=== PATIENT | female | born 1930 | race Caucasian/White ===

== ENCOUNTER → 2017-02-21 | Outpatient (CLI) | payer OTHER, BC ==
[2017-02-21 10:33] LABS: CREATININE 1.7 mg/dL (0.6-1.0)
== END ==
LOC: FIMAGING 09:48
PROVIDERS: ATTEND Internal Medicine
DX: K59.00 Constipation, unspecified (principal); K80.20 Calculus of gallbladder without cholecystitis without obstruction; I70.0 Atherosclerosis of aorta; E11.9 Type 2 diabetes mellitus without complications
CPT/HCPCS: G0463-PO

== ENCOUNTER → 2017-03-16 | Outpatient (CLI) | payer OTHER, BC | LOC: FIMAGING 13:30 | PROVIDERS: ATTEND Nurse Practitioner | DX: R60.9 Edema, unspecified (principal) ==

== ENCOUNTER → 2017-07-10 | Outpatient (CLI) | payer OTHER, BC | LOC: CIMAGING 10:15 | PROVIDERS: ATTEND Internal Medicine | DX: J44.9 Chronic obstructive pulmonary disease, unspecified (principal) | CPT/HCPCS: 71020-PO ==

== ENCOUNTER 2017-07-28 23:05 | Emergency (ER) | payer OTHER, BC ==
[2017-07-28 23:37] VITALS: TEMP 98.2
[2017-07-28] MEDS ORDERED: NS 1,000 ML IV ONE (23:40)
[2017-07-28 23:45] LABS: % IMMATURE GRANULYOCYTES 0.8 % (0.0-1.1); ABSOLUTE IMMATURE GRANULOCYTES 0.05 10^3/uL (0.00-0.10); ADD DIFF? NO; ADD MORPH? NO; ADD SCAN? NO; ATYPICAL LYMPHOCYTE FLAG 0 (0-99); FRAGMENT RBC FLAG 0 (0-99); HEMATOCRIT 41.9 % (38.0-47.0); HEMOGLOBIN 14.5 g/dL (12.6-16.3); LEFT SHIFT FLG 0 (0-99); LIPEMIA HEMOLYSIS FLAG 90 (0-99); MEAN CELL HEMOGLOBIN 31.5 pg (27.9-34.1); MEAN CELL HEMOGLOBIN CONCENTR. 34.6 g/dL (32.4-36.7); MEAN CELL VOLUME 90.9 fL (81.5-99.8); MEAN PLATELET VOLUME 12.4 fL (8.7-11.7); PLATELET CLUMPS FLAG 0 (0-99); PLATELET COUNT 174 10^3/uL (150-400); RED BLOOD CELL COUNT 4.61 10^6/uL (4.18-5.33); RED CELL DISTRIBUTION WIDTH 13.7 % (11.5-15.2)
[2017-07-28] MEDS ORDERED: INSULIN REGULAR HUMAN 100 UNIT/ML SC ONE (23:47)
[2017-07-28 23:54] LABS: CALCIUM 8.9 mg/dL (8.5-10.4); CREATININE 1.3 mg/dL (0.6-1.0); POTASSIUM 4.7 mEq/L (3.5-5.2)
--- NOTE | 2017-07-29 01:43 | EDPHY ---
H & P Time Seen by Provider: 07/28/17 23:30 HPI/ROS: CHIEF COMPLAINT: blood sugar at home over 500 HISTORY OF PRESENT ILLNESS: this is an 87-year-old female who recently had a series of hypoglycemic spells. She was on twice daily Humalog. She was referred by her PCP to a legal counsel who recently started on her on a new long -acting insulin, Tuejo. Wears her approximate total daily dose of the Humalog was in the neighborhood of 45 units she was started on 25 units of this new medication. She was warned at the time that she would probably run unusually high levels because there was this attempt to try to avoid hypoglycemia. Such is the case. The tonight was her 2nd dose of the Tuejo, 25 units with the plan to continue 25 units daily for 3 days and then up to 30. Tonight when she checked she had a reading over 500. Besides polyuria she does not notice any symptoms whatsoever. She has had no fevers, chills, cough, headache, near syncope, lightheadedness, nausea vomiting diarrhea, chest discomfort, shortness of breath, abdominal pain. REVIEW OF SYSTEMS: Constitutional: No fever, no chills. Eyes: No discharge. ENT: No sore throat. Cardiovascular: No chest pain, no palpitations. Respiratory: No cough, shortness of breath, or wheezing. Gastrointestinal: No nausea vomiting or diarrhea. No abdominal pain. Genitourinary: No hematuria or frequency. Musculoskeletal: No back pain. Skin: No rashes. Neurological: No headache. 10 point ROS otherwise negative Source: Patient Exam Limitations: No limitations - Personal History Tetanus Vaccine Date: 08/02/14 - Medical/Surgical History Hx Asthma: No Hx Chronic Respiratory Disease: No Hx Diabetes: Yes Hx Cardiac Disease: No Hx Renal Disease: No Hx Cirrhosis: No Hx Alcoholism: No Hx HIV/AIDS: No Hx Splenectomy or Spleen Trauma: No Other PMH: med hx-cholesterol,diabetes,thyroid, [place] - wears hearing aids. surg- ortho-(ft,hip,knee),appy,hyst - Family History Significant Family History: No pertinent family hx - Social History Smoking Status: Current every day smoker Alcohol Use: None Drug Use: None - Physical Exam Exam: General Appearance: Alert, no distress. Afebrile. Normal phonation. No respiratory distress. Eyes: Pupils equal and round no pallor or injection. No icterus ENT, Mouth: Mucous membranes slightly dry. Pharynx without erythema or exudate. TM cerumen blocked Neck: No adenopathy. Supple. No JVD. Respiratory: There are no retractions, lungs are clear to auscultation. Chest wall: Nontender to palpation. No crepitus. Cardiovascular: Regular rate and rhythm. Abdomen: Soft and nontender, no masses, bowel sounds normal. Neurological: Ox3. No motor weakness. Gait nl. Skin: Warm and dry, no rashes. Musculoskeletal: No joint swelling. Extremities: Moderate pitting edema to the knees, she states that stable. Homans sign negative. No cords. Psychiatric: Normal affect. Patient is oriented X 3. There is no agitation Constitutional: Initial Vital Signs Temperature (C) 36.8 C 07/28/17 23:34 Heart Rate 87 07/28/17 23:34 Respiratory Rate 16 07/28/17 23:34 Blood Pressure 115/95 H 07/28/17 23:34 O2 Sat (%) 96 07/28/17 23:34 O2 Delivery Mode Room Air Allergies/Adverse Reactions: acetaminophen [From Tylenol] Allergy (Severe, Verified 07/28/17 23:30) Hives morphine Allergy (Severe, Verified 07/28/17 23:30) "Goofy" Sulfa (Sulfonamide Antibiotics) Allergy (Severe, Verified 07/28/17 23:30) Hives Home Medications: Medication Instructions Recorded Aspirin 04/11/15 Atrovastatin 04/11/15 Feosol 04/11/15 Januvia 04/11/15 Levothyroxine 04/11/15 HCTZ (*) 07/28/17 Humalog 07/28/17 Lisinopril 07/28/17 Propranolol HCl 07/28/17 Medical Decision Making ED Course/Re-evaluation: She was given a L of fluid over 2 hours for volume depletion. Given 8 units of Humulin. Observed, repeat BG went down from 533 to 280. There is no clinical change. She was released. I explained to her that indeed I would expect her sugars to be elevated again today and that [facility], July 29 for discussion as to whether she should have an earlier increase in her medication Differential Diagnosis: At this point given the diabetes had a control other considerations would include urinary tract infection, dietary indiscretion, underlying infectious process, or metabolic stress such as acute PR or thyrotoxicosis. However given the medication change her hyperglycemia is anticipated and I do not see any problematic underlying etiology - Data Points Laboratory Results: Laboratory Results 07/28/17 23:25 07/28/17 23:25 07/29/17 07/28/17 07/28/17 01:31 23:25 23:25 WBC 6.40 10^3/uL 10^3/uL (3.80-9.50) RBC 4.61 10^6/uL 10^6/uL (4.18-5.33) Hgb 14.5 g/dL g/dL (12.6-16.3) Hct 41.9 % % (38.0-47.0) MCV 90.9 fL fL (81.5-99.8) MCH 31.5 pg pg (27.9-34.1) MCHC 34.6 g/dL g/dL (32.4-36.7) RDW 13.7 % % (11.5-15.2) Plt Count 174 10^3/uL 10^3/uL (150-400) MPV 12.4 fL H fL (8.7-11.7) Neut % (Auto) 60.1 % % (39.3-74.2) Lymph % (Auto) 23.6 % % (15.0-45.0) [place]y % (Auto) 12.3 % % (4.5-13.0) Eos % (Auto) 2.3 % % (0.6-7.6) Baso % (Auto) 0.9 % % (0.3-1.7) Nucleat RBC Rel Count 0.0 % % (0.0-0.2) Absolute Neuts (auto) 3.84 10^3/uL 10^3/uL (1.70-6.50) Absolute Lymphs (auto) 1.51 10^3/uL 10^3/uL (1.00-3.00) Absolute Monos (auto) 0.79 10^3/uL 10^3/uL (0.30-0.80) Absolute Eos (auto) 0.15 10^3/uL 10^3/uL (0.03-0.40) Absolute Basos (auto) 0.06 10^3/uL 10^3/uL (0.02-0.10) Absolute Nucleated RBC 0.00 10^3/uL 10^3/uL (0-0.01) Immature Gran % 0.8 % % (0.0-1.1) Immature Gran # 0.05 10^3/uL 10^3/uL (0.00-0.10) Sodium 134 mEq/L mEq/L (134-144) Potassium 4.7 mEq/L mEq/L (3.5-5.2) Chloride 100 mEq/L mEq/L (97-110) Carbon Dioxide 24 mEq/l mEq/l (22-31) Anion Gap 10 mEq/L mEq/L (8-16) BUN 30 mg/dL H mg/dL (7-23) Creatinine 1.3 mg/dL H mg/dL (0.6-1.0) Estimated GFR 39 Glucose 519 mg/dL H* mg/dL (70-100) POC Glucose 265 mg/dL H mg/dL (70-100) Calcium 8.9 mg/dL mg/dL (8.5-10.4) 07/28/17 23:16 WBC RBC Hgb Hct MCV MCH MCHC RDW Plt Count MPV Neut % (Auto) Lymph % (Auto) [place] % (Auto) Eos % (Auto) Baso % (Auto) Nucleat RBC Rel Count Absolute Neuts (auto) Absolute Lymphs (auto) Absolute Monos (auto) Absolute Eos (auto) Absolute Basos (auto) Absolute Nucleated RBC Immature Gran % Immature Gran # Sodium Potassium Chloride Carbon Dioxide Anion Gap BUN Creatinine Estimated GFR Glucose POC Glucose 518 mg/dL H* mg/dL (70-100) Calcium Medications Given: Discontinued Medications Sodium Chloride (Ns) 1,000 mls @ 0 mls/hr IV ONCE ONE PRN Reason: Wide Open Stop: 07/28/17 23:41 Last Admin: 07/28/17 23:35 Dose: 1,000 mls Insulin Human Regular (Humulin R) 8 unit SC EDNOW ONE Stop: 07/28/17 23:48 Last Admin: 07/28/17 23:59 Dose: 8 units Point of Care Test Results: 07/28/17 07/29/17 23:16 01:31 POC Glucose 518 H* 265 H Departure - Departure Disposition: Home, Routine, Self-Care Clinical Impression: Hyperglycemia without ketosis Hyperglycemia due to type 2 diabetes mellitus Qualifiers: Diabetes mellitus bed bug exterminator insulin use: with bed bug exterminator use Qualified Code(s): E11.65 - Type 2 diabetes mellitus with hyperglycemia Condition: Good Instructions: Type 2 Diabetes in Adults (ED), Hyperglycemia, Non-Diabetic (ED) Additional Instructions: Do Call your family doctor tomorrow, Monday, to see if there is any additional recommendations regarding Monday dosing of this new insulin that your on. In the interim, there is no need to take any extra Humalog However, for the next day and half as her sugars a little on the high side, take extra fluids. This should be a mixture of none sugar containing fluids such as diabetic soda, water etc. However, extra caffeine in the way of tea or coffee is not recommended Referrals: Patient,NotPresent [Primary Care Provider] - As per Instructions
[2017-07-29 02:08] VITALS: BP 124/88; PULSE 84; RESP 14; O2SAT 94
== END 2017-07-29 02:05 | disposition home or self-care (01) ==
LOC: CED 23:05
DX: E11.65 Type 2 diabetes mellitus with hyperglycemia (principal); F17.200 Nicotine dependence, unspecified, uncomplicated; E86.9 Volume depletion, unspecified; Z79.82 Long term (current) use of aspirin
CPT/HCPCS: 96360; 96372; 99284; J1815; 80048-PO; 82947-QW; 85025-PO

== ENCOUNTER 2017-09-10 08:20 | Emergency (ER) | payer OTHER, BC ==
[2017-09-10 09:12] LABS: % IMMATURE GRANULYOCYTES 0.7 % (0.0-1.1); ABSOLUTE IMMATURE GRANULOCYTES 0.07 10^3/uL (0.00-0.10); ADD DIFF? NO; ADD MORPH? NO; ADD SCAN? NO; ATYPICAL LYMPHOCYTE FLAG 10 (0-99); FRAGMENT RBC FLAG 0 (0-99); HEMATOCRIT 42.2 % (38.0-47.0); HEMOGLOBIN 14.5 g/dL (12.6-16.3); LEFT SHIFT FLG 0 (0-99); LIPEMIA HEMOLYSIS FLAG 90 (0-99); MEAN CELL HEMOGLOBIN 31.5 pg (27.9-34.1); MEAN CELL HEMOGLOBIN CONCENTR. 34.4 g/dL (32.4-36.7); MEAN CELL VOLUME 91.5 fL (81.5-99.8); MEAN PLATELET VOLUME 12.2 fL (8.7-11.7); PLATELET CLUMPS FLAG 0 (0-99); PLATELET COUNT 214 10^3/uL (150-400); RED BLOOD CELL COUNT 4.61 10^6/uL (4.18-5.33); RED CELL DISTRIBUTION WIDTH 13.5 % (11.5-15.2)
--- NOTE | 2017-09-10 09:15 | EDPHY ---
H & P Time Seen by Provider: 09/10/17 08:28 HPI/ROS: CHIEF COMPLAINT: Vaginal bleeding HISTORY OF PRESENT ILLNESS: 87-year-old female presents to the emergency department by private vehicle with her son complaining heavy vaginal bleeding that began last night. The patient states that she has had some intermittent spotting which she thought was due to her vaginal pessary. She typically has this adjusted every 3 months. This was last adjusted a week and half ago by Dr. Jacinto Andrade. The patient has no associated abdominal pain. Patient has some urinary frequency however her son states "she always has that ". She is a type 2 diabetic on insulin and her blood sugars have been running high. REVIEW OF SYSTEMS: Constitutional: No fever, no chills. Eyes: No double or blurry vision. ENT: No sore throat. Respiratory: No cough, no shortness of breath. Cardiac: No chest pain. Gastrointestinal: No abdominal pain, vomiting or diarrhea. Genitourinary: Urinary frequency. No dysuria. Musculoskeletal: No neck or back pain. Skin: No rashes. Neurological: No headache. Past Medical/Surgical History: Type 2 diabetic on insulin, thyroidectomy, hypothyroidism, hypertension, appendectomy, complete hysterectomy, COPD, hyperlipidemia, bladder prolapse 4 years ago, vaginal pessary for prolapse Social History: and lives with her son Smoking Status: Former smoker Physical Exam: General Appearance: Alert, no distress. 36.4, heart rate 80, 99% on room air, 130/65 Eyes: Pupils equal and round. Extraocular motions are all intact. ENT: Mouth: Mucous membranes moist. Respiratory: No wheezing, rhonchi, or rales, lungs are clear to auscultation. Cardiovascular: Regular rate and rhythm. Gastrointestinal: Abdomen is soft and nontender, no masses, no rebound or guarding, bowel sounds normal. Genitourinary: Erythematous raw appearing tissue to the labia majora and labia minora. No external open sores noted. On speculum examination a white pessary is present. Very small amount of blood in the vaginal canal. The pessary was easily removed. Erythema with excoriated appearing tissue noted to vaginal cuff. No active bleeding. Neurological: Alert and oriented x 3, cranial nerves II through XII grossly intact Skin: Warm and dry, no rashes. Musculoskeletal: Nontender to palpate along the cervical, thoracic or lumbar spine. Neck is supple. Extremities: Full range of motion and no peripheral edema. Psychiatric: Patient is oriented X 3, there is no agitation. Constitutional: Initial Vital Signs Temperature (C) 36.4 C 09/10/17 08:25 Heart Rate 80 09/10/17 08:25 Respiratory Rate 18 09/10/17 08:25 Blood Pressure 130/65 H 09/10/17 08:25 O2 Sat (%) 99 09/10/17 08:25 O2 Delivery Mode Room Air Allergies/Adverse Reactions: acetaminophen [From Tylenol] Allergy (Severe, Verified 09/10/17 08:22) Hives morphine Allergy (Severe, Verified 09/10/17 08:22) "Goofy" Sulfa (Sulfonamide Antibiotics) Allergy (Severe, Verified 09/10/17 08:22) Hives Home Medications: Medication Instructions Recorded Aspirin 04/11/15 Atrovastatin 04/11/15 Feosol 04/11/15 Levothyroxine 04/11/15 HCTZ (*) 07/28/17 Humalog 07/28/17 Lisinopril 07/28/17 Propranolol HCl 07/28/17 Cephalexin [Keflex] 500 mg PO TID #21 cap 09/10/17 [place] 09/10/17 Medical Decision Making ED Course/Re-evaluation: 87-year-old female presents to the emergency department with vaginal bleeding. The patient states that she has some had some intermittent spotting over the last week and half a however last night developed more heavy vaginal bleeding and again this morning. She has no abdominal pain or pelvic pain. The patient appears well. She has no abdominal pain. She has a history of hysterectomy although it is not clear if she had a complete hysterectomy. I spoke with Dr. Whittaker, who was on-call for the patient's OBGYN Dr. Jacinto preciado. She recommended removing the vaginal pessary and having her follow up in the clinic tomorrow. Patient's vital signs are stable. Her complete blood cell count is within normal limits. Patient's creatinine is elevated 1.4, however this is stable for the patient. Urinalysis did reveal large amount of white blood cells, red blood cells and just trace epithelial cells. Urine cultures pending. Patient states that she has had numerous UTIs. She will be started on Keflex which she has tolerated well. She was encouraged to have close follow-up with her primary care provider as well as with her OBGYN tomorrow. Patient was instructed to return to the emergency department sooner if she developed worsening vaginal bleeding, she felt lightheaded or dizzy, or if she felt worse in any way. Differential Diagnosis: Including but not limited to - Data Points Laboratory Results: Laboratory Results 09/10/17 09:04 09/10/17 09:04 09/10/17 09/10/17 09/10/17 09:04 09:04 08:55 WBC 9.37 10^3/uL 10^3/uL (3.80-9.50) RBC 4.61 10^6/uL 10^6/uL (4.18-5.33) Hgb 14.5 g/dL g/dL (12.6-16.3) Hct 42.2 % % (38.0-47.0) MCV 91.5 fL fL (81.5-99.8) MCH 31.5 pg pg (27.9-34.1) MCHC 34.4 g/dL g/dL (32.4-36.7) RDW 13.5 % % (11.5-15.2) Plt Count 214 10^3/uL 10^3/uL (150-400) MPV 12.2 fL H fL (8.7-11.7) Neut % (Auto) 73.7 % % (39.3-74.2) Lymph % (Auto) 13.8 % L % (15.0-45.0) [place] % (Auto) 9.7 % % (4.5-13.0) Eos % (Auto) 1.2 % % (0.6-7.6) Baso % (Auto) 0.9 % % (0.3-1.7) Nucleat RBC Rel Count 0.0 % % (0.0-0.2) Absolute Neuts (auto) 6.91 10^3/uL H 10^3/uL (1.70-6.50) Absolute Lymphs (auto) 1.29 10^3/uL 10^3/uL (1.00-3.00) Absolute Monos (auto) 0.91 10^3/uL H 10^3/uL (0.30-0.80) Absolute Eos (auto) 0.11 10^3/uL 10^3/uL (0.03-0.40) Absolute Basos (auto) 0.08 10^3/uL 10^3/uL (0.02-0.10) Absolute Nucleated RBC 0.00 10^3/uL 10^3/uL (0-0.01) Immature Gran % 0.7 % % (0.0-1.1) Immature Gran # 0.07 10^3/uL 10^3/uL (0.00-0.10) Sodium 141 mEq/L mEq/L (134-144) Potassium 4.3 mEq/L mEq/L (3.5-5.2) Chloride 100 mEq/L mEq/L (97-110) Carbon Dioxide 28 mEq/l mEq/l (22-31) Anion Gap 13 mEq/L mEq/L (8-16) BUN 34 mg/dL H mg/dL (7-23) Creatinine 1.4 mg/dL H mg/dL (0.6-1.0) Estimated GFR 36 Glucose 267 mg/dL H mg/dL (70-100) Calcium 9.0 mg/dL mg/dL (8.5-10.4) Urine Color YELLOW Urine Appearance MODERATELY TURBID Urine pH 5.0 (5.0-7.5) Ur Specific Yoder 1.012 (1.002-1.030) Urine Protein 1+ H (NEGATIVE) Urine Ketones NEGATIVE (NEGATIVE) Urine Blood 3+ H (NEGATIVE) Urine Nitrate NEGATIVE (NEGATIVE) Urine Bilirubin NEGATIVE (NEGATIVE) Urine Urobilinogen NEGATIVE EU EU (0.2-1.0) Ur Leukocyte Esterase 3+ H (NEGATIVE) Urine RBC 25-50 /hpf H /hpf (0-3) Urine WBC 50-182 /hpf H /hpf (0-3) Ur Epithelial Cells TRACE /lpf /lpf (NONE-1+) Urine Bacteria 1+ /hpf H /hpf (NONE SEEN) Urine Glucose 1+ H (NEGATIVE) Departure - Departure Disposition: Home, Routine, Self-Care Clinical Impression: Vaginal bleeding Problem with vaginal pessary Qualifiers: Encounter type: initial encounter Qualified Code(s): T83.9XXA - Unspecified complication of genitourinary prosthetic device, implant and graft, initial encounter Condition: Good Instructions: Vaginal Atrophy (ED) Additional Instructions: Follow up with Dr. Jacinto Andrade tomorrow to recheck. Return if you develop worsening vaginal bleeding, abdominal pain, or if you feel worse in any way. Keflex 500mg three times daily for 7 days. Monitor your blood sugars closely while taking antibiotics. Referrals: Tawanna Rendon MD [Medical Doctor] - 1-2 days without fail Prescriptions: Cephalexin [Keflex] 500 mg PO TID #21 cap
[2017-09-10 09:20] LABS: COLOR YELLOW; LEUKOCYTE ESTERASE,URINE 3+ (NEGATIVE); NITRITE,URINE NEGATIVE (NEGATIVE)
[2017-09-10 09:48] LABS: ANION GAP 13 mEq/L (8-16); CARBON DIOXIDE 28 mEq/l (22-31); CHLORIDE 100 mEq/L (97-110); CREATININE 1.4 mg/dL (0.6-1.0); GLOMERULAR FILTRATION RATE 36; GLUCOSE 267 mg/dL (70-100); POTASSIUM 4.3 mEq/L (3.5-5.2); SODIUM 141 mEq/L (134-144)
[2017-09-10 09:50] LABS: BACTERIA 1+ /hpf (NONE SEEN); RBC,URINE 25-50 /hpf (0-3); WBC,URINE 50-182 /hpf (0-3)
[2017-09-10 10:01] VITALS: BP 110/64; PULSE 85; RESP 16; O2SAT 95
[2017-09-10 10:40] VITALS: TEMP 98.2
== END 2017-09-10 10:39 | disposition home or self-care (01) ==
DX: N93.9 Abnormal uterine and vaginal bleeding, unspecified (principal); T83.9XXA Unspecified complication of genitourinary prosthetic device, implant and graft, initial encounter; E11.9 Type 2 diabetes mellitus without complications; I10 Essential (primary) hypertension; J44.9 Chronic obstructive pulmonary disease, unspecified; Z87.891 Personal history of nicotine dependence; Z79.82 Long term (current) use of aspirin; Z79.4 Long term (current) use of insulin; Y82.8 Other medical devices associated with adverse incidents

== ENCOUNTER → 2017-10-25 | Outpatient (CLI) | payer OTHER, BC | LOC: FIMAGING 08:11 | PROVIDERS: ATTEND Midwife | DX: R10.32 Left lower quadrant pain (principal); Z90.710 Acquired absence of both cervix and uterus; Z90.722 Acquired absence of ovaries, bilateral ==

== ENCOUNTER → 2017-11-01 | Outpatient (CLI) | payer OTHER, BC ==
[~2017-11-01] MED LIST: IOPAMIDOL (ISOVUE-300) 100 ML BTL ONE
== END ==
LOC: FIMAGING 07:51
PROVIDERS: ATTEND Midwife
DX: K59.00 Constipation, unspecified (principal); K80.20 Calculus of gallbladder without cholecystitis without obstruction
CPT/HCPCS: 74177; Q9967

== ENCOUNTER → 2017-11-17 | Outpatient (CLI) | payer OTHER, BC | LOC: CIMAGING 14:07 | PROVIDERS: ATTEND Internal Medicine | DX: J84.9 Interstitial pulmonary disease, unspecified (principal); I70.0 Atherosclerosis of aorta | CPT/HCPCS: 71046-PO ==

== ENCOUNTER 2017-11-18 07:30 | Emergency (ER) | payer OTHER, BC ==
--- NOTE | 2017-11-18 08:03 | CPEKG ---
Heart Rate: 81 RR Interval: 741 P-R Interval: 152 QRSD Interval: 90 QT Interval: 376 QTC Interval: 437 P [place]: 54 QRS [place]: 14 T Wave [place]: 38 EKG Severity - BORDERLINE ECG - EKG Impression: SINUS RHYTHM EKG Impression: BORDERLINE INFERIOR Q WAVES Electronically Signed By: Dio Martinez 18-Nov-2017 08:20:01
--- NOTE | 2017-11-18 08:18 | EDPHY ---
H & P Time Seen by Provider: 11/18/17 07:54 HPI/ROS: CHIEF COMPLAINT: Left-sided chest pain HISTORY OF PRESENT ILLNESS: Patient developed symptoms on Monday this week. She saw her primary care doctor on Monday and had a chest x-ray yesterday which showed some left-sided atelectasis with recommendation for CT angiography which was ordered by her doctor to be scheduled on Monday. Comes in today with left-sided sharp chest pain which is worse with deep breath. It radiates from under her left arm down to her left hip. It is not associated with abdominal pain or vomiting or nausea or diarrhea. Her last bowel movement was yesterday and today. She does have some chronic left leg swelling but that is from an old orthopedic injury in the 1949s and is not new. No cough or hemoptysis or recent injury or trauma. REVIEW OF SYSTEMS: Eye: no change in vision ENT: no sore throat Cardiac: HPI Pulmonary: Mildly short of breath with her symptoms Abdomen: no vomiting, diarrhea, abdominal pain Musculoskeletal: Chronic left leg swelling is noted above Skin: no rash Neuro: no headache Constitutional: no fever : no urinary symptoms A comprehensive 10 point review of systems is otherwise negative aside from elements mentioned in the history of present illness. PAST MEDICAL HISTORY: Includes cholesterol, diabetes, thyroid. Appendectomy and hysterectomy Social history: Nonsmoker here with her son General Appearance: Alert and conversant, cooperative. Eyes: No scleral icterus. ENT, Mouth: Normal mucous membranes. Respiratory: Splinting with decreased breath sounds on the left side but speaks in full sentences. Cardiovascular: Regular rate and rhythm. Gastrointestinal: Abdomen is soft and non tender. Nontender over the spleen. Neurological: Alert, face symmetric, normal motor and sensory in extremities. Skin: Warm and dry, no rashes. Specifically she does not have any evidence of zoster over the left chest wall. Musculoskeletal: Chronic left leg peripheral edema greater than right but no calf tenderness. Psychiatric: Not agitated. Emergency Department course/MDM: Plan for chemistries and CT angiography as requested by her primary care physician. 824: Agrees to pain medication, does not have a true anaphylaxis to morphine. Has stated allergy to Tylenol. Will try to avoid nonsteroidals given plan for IV contrast. Oxycodone 5 mg orally. 930: CT angiography reviewed with Dr. Granda shows no pulmonary embolism or infiltrate. No other abnormalities in the lung except for some thickening at the left pleural base, possible pleurisy. This point I think the most reasonable thing to do is to treat patient symptomatically and have her follow up as an outpatient. Results discussed, patient is comfortable with discharge. With pleuritic chest pain since last Monday and no ischemic changes on EKG and normal troponin I think that ACS or NC would be very unlikely. Smoking Status: Former smoker Constitutional: Initial Vital Signs Temperature (C) 36.5 C 11/18/17 07:42 Heart Rate 84 11/18/17 07:42 Respiratory Rate 18 11/18/17 07:42 Blood Pressure 109/60 11/18/17 07:42 O2 Sat (%) 94 11/18/17 07:42 O2 Delivery Mode Room Air Allergies/Adverse Reactions: acetaminophen [From Tylenol] Allergy (Severe, Verified 09/10/17 08:22) Hives morphine Allergy (Severe, Verified 09/10/17 08:22) "Goofy" Sulfa (Sulfonamide Antibiotics) Allergy (Severe, Verified 09/10/17 08:22) Hives Home Medications: Medication Instructions Recorded Aspirin 04/11/15 Atrovastatin 04/11/15 Feosol 04/11/15 Levothyroxine 04/11/15 HCTZ (*) 07/28/17 Humalog 07/28/17 Lisinopril 07/28/17 Propranolol HCl 07/28/17 [place] 100 Unit-33 Mcg/ml Pen 11/18/17 oxyCODONE HCL [Oxycodone HCl] 5 mg PO Q8 PRN #7 tablet 11/18/17 Medical Decision Making - Diagnostics EKG Interpretation: 12-lead EKG interpreted by me; official reading is in trace master. My interpretation is sinus rhythm rate 81, borderline inferior Q-waves noted, no acute ischemic changes. Imaging: Discussed imaging studies w/ scallop raker Radiologist Differential Diagnosis: Differential diagnosis considered for chest pain including but not limited to myocardial ischemia, aortic dissection, pericarditis, pulmonary embolus, chest wall pain, pleural inflammation and pulmonary infectious causes. - Data Points Laboratory Results: Laboratory Results 11/18/17 08:14 11/18/17 08:14 11/18/17 11/18/17 08:14 08:14 WBC 8.81 10^3/uL 10^3/uL (3.80-9.50) RBC 4.40 10^6/uL 10^6/uL (4.18-5.33) Hgb 13.6 g/dL g/dL (12.6-16.3) Hct 40.9 % % (38.0-47.0) MCV 93.0 fL fL (81.5-99.8) MCH 30.9 pg pg (27.9-34.1) MCHC 33.3 g/dL g/dL (32.4-36.7) RDW 12.6 % % (11.5-15.2) Plt Count 201 10^3/uL 10^3/uL (150-400) MPV 12.5 fL H fL (8.7-11.7) Neut % (Auto) 76.4 % H % (39.3-74.2) Lymph % (Auto) 8.9 % L % (15.0-45.0) [place] % (Auto) 12.6 % % (4.5-13.0) Eos % (Auto) 0.8 % % (0.6-7.6) Baso % (Auto) 0.6 % % (0.3-1.7) Nucleat RBC Rel Count 0.0 % % (0.0-0.2) Absolute Neuts (auto) 6.74 10^3/uL H 10^3/uL (1.70-6.50) Absolute Lymphs (auto) 0.78 10^3/uL L 10^3/uL (1.00-3.00) Absolute Monos (auto) 1.11 10^3/uL H 10^3/uL (0.30-0.80) Absolute Eos (auto) 0.07 10^3/uL 10^3/uL (0.03-0.40) Absolute Basos (auto) 0.05 10^3/uL 10^3/uL (0.02-0.10) Absolute Nucleated RBC 0.00 10^3/uL 10^3/uL (0-0.01) Immature Gran % 0.7 % % (0.0-1.1) Immature Gran # 0.06 10^3/uL 10^3/uL (0.00-0.10) Sodium 138 mEq/L mEq/L (135-145) Potassium 4.3 mEq/L mEq/L (3.5-5.2) Chloride 100 mEq/L mEq/L (97-110) Carbon Dioxide 25 mEq/l mEq/l (22-31) Anion Gap 13 mEq/L mEq/L (8-16) BUN 30 mg/dL H mg/dL (7-23) Creatinine 1.4 mg/dL H mg/dL (0.6-1.0) Estimated GFR 36 Glucose 218 mg/dL H mg/dL (70-100) Calcium 9.3 mg/dL mg/dL (8.5-10.4) Total Bilirubin 1.7 mg/dL H mg/dL (0.1-1.4) Conjugated Bilirubin 0.6 mg/dL H mg/dL (0.0-0.5) Unconjugated Bilirubin 1.1 mg/dL mg/dL (0.0-1.1) AST 21 IU/L IU/L (14-46) ALT 37 IU/L IU/L (9-52) Alkaline Phosphatase 151 IU/L H IU/L (38-126) Troponin I < 0.012 ng/mL ng/mL (0.000-0.034) Total Protein 7.0 g/dL g/dL (6.3-8.2) Albumin 3.7 g/dL g/dL (3.5-5.0) Lipase 131 IU/L IU/L (23-300) Medications Given: Discontinued Medications Sodium Chloride (Ns) 500 mls @ 1,000 mls/hr IV EDNOW ONE PRN Reason: Protocol Stop: 11/18/17 09:10 Last Admin: 11/18/17 09:13 Dose: 500 mls Oxycodone HCl (Oxycodone Ir) 5 mg PO EDNOW ONE Stop: 11/18/17 08:25 Last Admin: 11/18/17 08:34 Dose: 5 mg Departure - Departure Disposition: Home, Routine, Self-Care Clinical Impression: Pleurisy Chest pain Qualifiers: Chest pain type: pleurodynia Qualified Code(s): R07.81 - Pleurodynia Condition: Good Instructions: Chest Pain (ED), Pleurisy (DC) Referrals: Sumaya Denny MD [Primary Care Provider] - As per Instructions Prescriptions: oxyCODONE HCL [Oxycodone HCl] 5 mg PO Q8 PRN #7 tablet PRN Reason: pain
[2017-11-18 08:22] LABS: PLATELET COUNT 201 10^3/uL (150-400)
[2017-11-18] MEDS ORDERED: oxyCODONE IR 5 MG TAB PO ONE (08:24)
[2017-11-18] MEDS ORDERED: NS 500 ML IV ONE (08:41)
[2017-11-18] MEDS ORDERED: IOPAMIDOL (ISOVUE 370) 100 ML BTL IV ONE (08:44)
[2017-11-18 09:54] VITALS: BP 118/73; PULSE 74; RESP 16; TEMP 98.2; O2SAT 93
== END 2017-11-18 09:52 | disposition home or self-care (01) ==
DX: R07.81 Pleurodynia (principal); R09.1 Pleurisy; E86.9 Volume depletion, unspecified; E11.9 Type 2 diabetes mellitus without complications; Z79.82 Long term (current) use of aspirin; Z87.891 Personal history of nicotine dependence
CPT/HCPCS: 71275; 93005; 96360; 99285; Q9967

== ENCOUNTER 2017-11-19 12:50 | Emergency (ER) | payer OTHER, BC ==
[2017-11-19 12:59] VITALS: BP 114/51; PULSE 77; RESP 18; TEMP 98.2; O2SAT 94
[2017-11-19] MEDS ORDERED: LIDOCAINE 4%/MENTHOL 1% PATCH TD ONE (13:07)
--- NOTE | 2017-11-19 13:10 | EDPHY ---
H & P Time Seen by Provider: 11/19/17 13:02 HPI/ROS: CHIEF COMPLAINT: Left-sided chest pain HISTORY OF PRESENT ILLNESS: Patient was here in the emergency department yesterday for probable pleurisy. She had evaluation including EKG troponin and CT angiography with likely diagnosis of pleurisy. She has taken 3 of the oxycodone I prescribed is worried that she is going to run out. She still has left-sided chest pain which is worse with deep breathing or movement. She has not developed any new symptoms. Specifically no shortness of breath or fever, no lightheadedness or syncope. REVIEW OF SYSTEMS: Eye: no change in vision ENT: no sore throat Cardiac: HPI Pulmonary: no cough or SOB Abdomen: no vomiting, diarrhea, abdominal pain Musculoskeletal: no back pain Skin: no rash Neuro: no headache Constitutional: no fever : no urinary symptoms A comprehensive 10 point review of systems is otherwise negative aside from elements mentioned in the history of present illness. PAST MEDICAL HISTORY: Includes hypercholesterolemia and diabetes, hypothyroid. Wears hearing aids. Appendectomy and hysterectomy. Social history: Here with her son General Appearance: Alert and conversant, cooperative. Eyes: No scleral icterus. ENT, Mouth: Normal mucous membranes. Respiratory: Normal respiratory effort, breath sounds equal, lungs are clear to auscultation. Not splinting Cardiovascular: Regular rate and rhythm. Gastrointestinal: Abdomen is soft and non tender. Neurological: Alert, face symmetric, normal motor and sensory in extremities. Skin: Warm and dry, no rashes. No rash of zoster. Musculoskeletal: No peripheral edema. Psychiatric: Not agitated. Emergency Department course/MDM: Patient is ambulatory. She appears relatively comfortable. I suggested we try Lidoderm patch in a prescription for few extra oxycodone, she can follow up with her primary care doctor in 2 days. She does not have signs or symptoms to suggest alternative diagnosis of the one she was given yesterday. Smoking Status: Former smoker Constitutional: Initial Vital Signs Temperature (C) 36.8 C 11/19/17 12:53 Heart Rate 77 11/19/17 12:53 Respiratory Rate 18 11/19/17 12:53 Blood Pressure 114/51 L 11/19/17 12:53 O2 Sat (%) 94 11/19/17 12:53 O2 Delivery Mode Room Air Allergies/Adverse Reactions: acetaminophen [From Tylenol] Allergy (Severe, Verified 11/19/17 12:53) Hives morphine Allergy (Severe, Verified 11/19/17 12:53) "Goofy" Sulfa (Sulfonamide Antibiotics) Allergy (Severe, Verified 11/19/17 12:53) Hives Home Medications: Medication Instructions Recorded Aspirin 04/11/15 Atrovastatin 04/11/15 Feosol 04/11/15 Levothyroxine 04/11/15 HCTZ (*) 07/28/17 Humalog 07/28/17 Lisinopril 07/28/17 Propranolol HCl 07/28/17 Soliqua 100 Unit-33 Mcg/ml Pen 11/18/17 oxyCODONE HCL [Oxycodone HCl] 5 mg PO Q8 PRN #7 tablet 11/18/17 Lidocaine 5% [Lidoderm 5% Patch 1 ea TD DAILY #5 patch 11/19/17 (*)] oxyCODONE HCL [Oxycodone HCl] 5 mg PO Q8 #11 tablet 11/19/17 MDM/Departure - MDM Differential Diagnosis: Differential diagnosis considered for chest pain including but not limited to myocardial ischemia, aortic dissection, pericarditis, pulmonary embolus, chest wall pain, pleural inflammation and pulmonary infectious causes. - Depart Disposition: Home, Routine, Self-Care Clinical Impression: Pleurisy Chest pain Qualifiers: Chest pain type: unspecified Qualified Code(s): R07.9 - Chest pain, unspecified Condition: Good Instructions: Oxycodone, Rapid Release (By mouth) Prescriptions: Lidocaine 5% [Lidoderm 5% Patch (*)] 1 ea TD DAILY #5 patch oxyCODONE HCL [Oxycodone HCl] 5 mg PO Q8 #11 tablet Referrals: Sumaya Denny MD [Medical Doctor] - 2-3 days, call for appt.
[2017-11-19] MEDS ORDERED: PATCH REMOVAL 1 EA PATCH TD SCH (21:00)
== END 2017-11-19 13:20 | disposition home or self-care (01) ==
DX: R09.1 Pleurisy (principal); E11.9 Type 2 diabetes mellitus without complications; Z79.4 Long term (current) use of insulin; Z79.82 Long term (current) use of aspirin; Z87.891 Personal history of nicotine dependence

== ENCOUNTER → 2018-01-18 | Outpatient (CLI) | payer OTHER, BC | LOC: CIMAGING 10:39 | PROVIDERS: ATTEND Nurse Practitioner | DX: M25.772 Osteophyte, left ankle (principal); M25.572 Pain in left ankle and joints of left foot | CPT/HCPCS: 73610-PO ==